=== PATIENT | female | born 1955 | race Caucasian/White ===

== ENCOUNTER 2018-05-16 07:59 | Day surgery (SDC) | payer OTHER, MEDICARE ==
[~2018-05-16] VITALS: Ht 165.1 cm; Wt 74.3 kg
[~2018-05-16 07:59] MED LIST: AMLO5; BENAML20/5; CYCL10 PO; HYDACE5 PO; HYDCHL25; OXYACE5T PO; RXOXYACE PO; TRAZ100; TRAZODONE
== END 2018-05-16 10:57 | disposition home or self-care (01) ==
LOC: ORSCSDS 07:59
PROVIDERS: Internal Medicine Gastroenterology
PROC: 0DBN8ZX Excision of Sigmoid Colon, Via Natural or Artificial Opening Endoscopic, Diagnostic (ICD-10-PCS; principal; 2018-05-16 09:15)
DX: Z12.11 Encounter for screening for malignant neoplasm of colon (principal); D12.5 Benign neoplasm of sigmoid colon; K64.8 Other hemorrhoids; F41.8 Other specified anxiety disorders; K57.30 Diverticulosis of large intestine without perforation or abscess without bleeding; Z86.19 Personal history of other infectious and parasitic diseases; K74.60 Unspecified cirrhosis of liver; I10 Essential (primary) hypertension; Z87.891 Personal history of nicotine dependence; Z79.899 Other long term (current) drug therapy
CPT/HCPCS: 88305; J7120

== ENCOUNTER → 2021-02-26 | Outpatient (CLI) | payer OTHER ==
[2021-03-01 10:11] LABS: CHLAMYDIA BY NAA Negative (Negative); GONOCOCCUS BY NAA Negative (Negative); TRICH VAG BY NAA Negative (Negative)
== END | disposition home or self-care (01) ==
LOC: LAB SHORT 15:19
PROVIDERS: Physician Assistant Medical
DX: N76.0 Acute vaginitis (principal)
CPT/HCPCS: 87491; 87591; 87661

== ENCOUNTER 2021-04-05 05:30 | Day surgery (SDC) | payer BC | END 2021-04-05 10:20 | disposition home or self-care (01) | LOC: ORSCSDS 05:30 | DX: K31.A0 Gastric intestinal metaplasia, unspecified (principal); R63.4 Abnormal weight loss; Z53.9 Procedure and treatment not carried out, unspecified reason | CPT/HCPCS: J2704; J7120 ==

== ENCOUNTER 2021-08-29 08:25 | Inpatient (IN) | payer BC ==
[~2021-08-29] VITALS: Ht 167.6 cm; Wt 63.6 kg
[~2021-08-29 08:25] MED LIST changes: -AMLO5; +AMLO5 PO; +HYDROCODONE 5/325 PO; +LOSA25 PO; -TRAZ100; +TRAZ100 PO
--- NOTE | 2021-08-29 10:25 | NUR ---
History, Chart, Medications and Allergies reviewed before start of procedure. Lungs clear T/O to Auscultation. Patient confirms NPO status and agrees with scheduled surgery. Pre-Op teaching done. Pt verbalizes understanding.
--- NOTE | 2021-08-29 15:11 | NUR ---
ICE BAG PLACED TO LEG PER ORDERS. PT EATING ICE CHIPS AT THIS TIME.
--- NOTE | 2021-08-29 17:31 | NUR ---
SUMMARY PT ARRIVED TO UNIT FROM PACU. SCOOTED OVER FROM GURNEY TO BED WITH SUPPORT TO HER RLE. AQUACEL DRESSING TO RLE CDI. ICE PACK ON SURGICAL SITE FOR COMFORT. MEDICATED PT PER ORDERS FOR PAIN. PT TOLERATING PO INTAKE. VSS. PT SBA TO BSC TO VOID. NOW BACK TO BED. CALL LIGHT IN REACH.
--- NOTE | 2021-08-30 04:09 | NUR ---
SHIFT SUMMARY A/O X4- VITAL SIGNS STABLE. POD0 ORIF R TIBIAL PLATEAU FX, AQUACEL IN PLACE SCANT SHADOWING. PAIN MANAGED W/ PO PAIN MEDICATIONS. STAND PIVOT TO BEDSIDE COMMODE INDEPENDENTLY W/ SBA. VOIDING AND TOLERATING PO INTAKE. WILL CONTINUE TO MONITOR AND REPORT TO ONCOMING RN.
[2021-08-30 05:38] LABS: BASOPHILS ABSOLUTE AUTO 0.02 K/mm3 (0.00-0.23); BASOPHILS PERCENT AUTO 0 % (0-2); EOSINOPHILS PERCENT AUTO 0 % (0-6); Hematocrit 36.9 % (33.0-51.0); Hemoglobin 12.4 g/dL (11.5-16.0); IMMATURE GRAN ABSOLUTE AUTO 0.05 K/mm3 (0.00-0.10); IMMATURE GRAN PERCENT AUTO 0 % (0-1); LYMPHOCYTES ABSOLUTE AUTO 0.91 K/mm3 (0.84-5.20); LYMPHOCYTES PERCENT AUTO 6 % (21-46); MONOCYTES ABSOLUTE AUTO 0.63 K/mm3 (0.16-1.47); MONOCYTES PERCENT AUTO 4 % (4-13); Mean Corpuscular HGB 29.1 pg (26.0-34.0); Mean Corpuscular HGB Conc 33.6 g/dL (31.5-36.5); Mean Corpuscular Volume 87 fL (80-100); Mean Platelet Volume 10.3 fL (9.1-12.4); NEUTROPHILS ABSOLUTE AUTO 13.56 K/mm3 (1.96-9.15); NEUTROPHILS PERCENT AUTO 89 % (41-73); Platelet Count 314 K/mm3 (150-400); RDW Coefficient Variation 12.2 % (11.7-14.2); RDW Standard Deviation 38.5 fL (35.1-46.3); Red Blood Cell Count 4.26 M/mm3 (3.80-5.20); White Blood Cell Count 15.17 K/mm3 (4.00-11.30)
[2021-08-30 06:11] LABS: Bun/Creatinine Ratio 19.3 (12.0-20.0); Calcium, Blood 9.5 mg/dL (8.5-10.1); Creatinine, Blood 0.57 mg/dL (0.40-1.00); Potassium, Blood 3.8 mmol/L (3.5-5.5)
[2021-08-30] MEDS ORDERED: TRAZ100 PO (10:22)
[2021-08-30] MEDS ORDERED: Percocet 5-3251 EACH PO (10:23)
[2021-08-30] MEDS ORDERED: Aspir 8181 MG PO (10:26)
--- NOTE | 2021-08-30 12:28 | NUR ---
DISCHARGE SUMMARY PATIENT ALERT AND ORIENTED THROUGHOUT SHIFT. TOLERATING VEGETARIAN DIET AND LIQUIDS. MAINTAINS NWB STATUS WITH FWW. ABLE TO TRANSFER INDEPENDENTLY FROM BED TO COMMODE AND CHAIR. USES WHEELCHAIR TO MOVE IN HALLS. VOIDING WELL. PAIN CONTROLLED WITH PO PAIN MEDS. CLEARED BY PT. DISCHARGE ORDER IN CHART. DISCHARGE EDUCATION GIVEN ON WOUND CARE, ACTIVITY, NEW RXS, AND FOLLOW UP APPTS. IV DC'D WNL. PT TOLERATED WELL. PATIENT LEFT UNIT VIA WHEELCHAIR AT 1200 WITH DAUGHTER FOR HOME.
== END 2021-08-30 11:53 | disposition home or self-care (01) | DRG 494 ==
LOC: SURS 08:25 → ORSCMMR 10:00 → EDSTATUS 11:30 → ORSCMMR 11:30 → ORD 11:30 → SURS 16:00
PROVIDERS: ADMIT Orthopaedic Surgery
PROC: 0QSG04Z Reposition Right Tibia with Internal Fixation Device, Open Approach (ICD-10-PCS; principal; 2021-08-29 10:00)
DX: S82.141A Displaced bicondylar fracture of right tibia, initial encounter for closed fracture (principal); Z87.891 Personal history of nicotine dependence; K74.60 Unspecified cirrhosis of liver; F32.A Depression, unspecified; I10 Essential (primary) hypertension; K58.9 Irritable bowel syndrome, unspecified; E55.9 Vitamin D deficiency, unspecified; Z90.710 Acquired absence of both cervix and uterus; Z79.899 Other long term (current) drug therapy
CPT/HCPCS: 36415; 71045; 73560-RT; 80048; 85025; 97110; 97161; 97166; 97530; 97535; A9270; J0171; J0690; J1100; J1170; J2250; J2405; J2704; J3010; J7120

== ENCOUNTER 2022-05-12 10:25 | Observation (INO) | payer SELFPAY ==
[~2022-05-12] VITALS: Ht 165.1 cm; Wt 62.6 kg
[~2022-05-12 10:25] MED LIST changes: +Aspir 8181 MG PO; +Percocet 5-3251 EACH PO
[2022-05-12 11:27] LABS: BASOPHILS ABSOLUTE AUTO 0.03 K/mm3 (0.00-0.23); BASOPHILS PERCENT AUTO 0 % (0-2); EOSINOPHILS ABSOLUTE AUTO 0.07 K/mm3 (0.00-0.68); EOSINOPHILS PERCENT AUTO 1 % (0-6); Hematocrit 38.5 % (33.0-51.0); Hemoglobin 13.4 g/dL (11.5-16.0); IMMATURE GRAN ABSOLUTE AUTO 0.02 K/mm3 (0.00-0.10); IMMATURE GRAN PERCENT AUTO 0 % (0-1); LYMPHOCYTES ABSOLUTE AUTO 1.85 K/mm3 (0.84-5.20); LYMPHOCYTES PERCENT AUTO 25 % (21-46); MONOCYTES ABSOLUTE AUTO 0.41 K/mm3 (0.16-1.47); MONOCYTES PERCENT AUTO 6 % (4-13); Mean Corpuscular HGB 29.5 pg (26.0-34.0); Mean Corpuscular HGB Conc 34.8 g/dL (31.5-36.5); Mean Corpuscular Volume 85 fL (80-100); Mean Platelet Volume 10.3 fL (9.1-12.4); NEUTROPHILS ABSOLUTE AUTO 4.98 K/mm3 (1.96-9.15); NEUTROPHILS PERCENT AUTO 68 % (41-73); Platelet Count 253 K/mm3 (150-400); RDW Coefficient Variation 12.4 % (11.7-14.2); RDW Standard Deviation 38.4 fL (35.1-46.3); Red Blood Cell Count 4.54 M/mm3 (3.80-5.20); White Blood Cell Count 7.36 K/mm3 (4.00-11.30)
[2022-05-12 11:56] LABS: Ethanol (Alcohol), Blood, Med <3 mg/dL; Salicylate <1.7 mg/dL (2.8-20.0)
[2022-05-12 11:57] LABS: Alanine Aminotransfer (ALT/SGP 22 U/L (12-78); Albumin, Blood 3.8 g/dL (3.4-5.0); Alk Phos 72 U/L (50-136); Anion Gap 4 mmol/L (6-16); Aspartate Aminotrans (AST/SGOT 25 U/L (12-37); Bilirubin, Total 0.6 mg/dL (0.1-1.0); Blood Urea Nitrogen 16 mg/dL (8-24); Bun/Creatinine Ratio 22.6 (12.0-20.0); CO2, Blood 31 mmol/L (21-32); Calcium, Blood 9.1 mg/dL (8.5-10.1); Chloride, Blood 104 mmol/L (98-108); Creatinine, Blood 0.71 mg/dL (0.40-1.00); Glomerular Filtration Rate 94 (60-); Glucose, Blood 96 mg/dL (70-99); Potassium, Blood 3.6 mmol/L (3.5-5.5); Sodium, Blood 139 mmol/L (136-145); Total Protein, Blood 7.8 g/dL (6.4-8.2)
[2022-05-12 11:58] LABS: Acetaminophen, Random <2.0 ug/mL (10.0-30.0)
[2022-05-12 12:13] LABS: Influenza A, PCR NEGATIVE (NEGATIVE); Influenza B, PCR NEGATIVE (NEGATIVE); Resp Syncytial Virus, PCR NEGATIVE (NEGATIVE); SARS-Cov-2 (COVID-19) PCR, MMC NEGATIVE (NEGATIVE)
[2022-05-12] MEDS ORDERED: Prozac20 MG PO (12:37)
== END 2022-05-12 12:54 | disposition home or self-care (01) ==
LOC: ER 10:25 → EOR 10:26
PROVIDERS: ADMIT Emergency Medicine
DX: F32.A Depression, unspecified (principal); Z20.822 Contact with and (suspected) exposure to COVID-19; Z87.891 Personal history of nicotine dependence; Z79.899 Other long term (current) drug therapy
CPT/HCPCS: 0241U; 36415; 80053; 84443; 85025; A9270; G0378; G0480

== ENCOUNTER 2022-09-21 09:52 | Day surgery (SDC) | payer MEDICARE ==
[~2022-09-21] VITALS: Ht 165.1 cm; Wt 67.5 kg
[~2022-09-21 09:52] MED LIST changes: +Prozac20 MG PO
--- NOTE | 2022-09-21 10:36 | NUR ---
09/21/22 1036 GUILLE MURRAY PT TALKATIVE, COOPERATIVE WITH CARE. VSS. PRE-OP TEACHING COMPLETE.
--- NOTE | 2022-09-21 11:23 | NUR ---
09/21/22 1123 Ana Isbell 20ML OF ROPIVACAINE 0.5% MIXED AND VERIFIED WITH 0.1ML OF EPI (1MG/ML) TO MAKE ROPIVACAINE 0.5% WITH EPI 1:200,000 FOR INJECTION AT OPSITE BY DR RUELAS
[2022-09-21 12:18] VITALS: BP 157/87
--- NOTE | 2022-09-21 12:29 | NUR ---
09/21/22 1229 Haris Berrios IV REMOVED INTACT. SITE WNL.
== END 2022-09-21 12:27 | disposition home or self-care (01) ==
LOC: ORSCSDS 09:52
PROVIDERS: Orthopaedic Surgery
PROC: 0QPG04Z Removal of Internal Fixation Device from Right Tibia, Open Approach (ICD-10-PCS; principal; 2022-09-21 11:15)
DX: T84.84XA Pain due to internal orthopedic prosthetic devices, implants and grafts, initial encounter (principal); I10 Essential (primary) hypertension; Z87.891 Personal history of nicotine dependence; K74.60 Unspecified cirrhosis of liver; B19.20 Unspecified viral hepatitis C without hepatic coma; Z79.899 Other long term (current) drug therapy
CPT/HCPCS: A9270; C1713; J0171; J0690; J2704; J2795; J3010; J7120

== ENCOUNTER 2024-10-28 17:10 | Inpatient (IN) | payer OTHER ==
[~2024-10-28] VITALS: Ht 165.1 cm; Wt 75.0 kg
[2024-10-28] MEDS ORDERED: Morphine Sulfate 4 MG/1 ML Injection IV ONE (17:45)
[2024-10-28] MEDS ORDERED: HYDROmorphone HCl/Pf 1MG SYR IV ONE (18:50)
[2024-10-28 19:47] LABS: BASOPHILS ABSOLUTE AUTO 0.03 K/mm3 (0.00-0.23); BASOPHILS PERCENT AUTO 0 % (0-2); EOSINOPHILS ABSOLUTE AUTO 0.00 K/mm3 (0.00-0.68); EOSINOPHILS PERCENT AUTO 0 % (0-6); Hematocrit 39.8 % (33.0-51.0); Hemoglobin 14.0 g/dL (11.5-16.0); IMMATURE GRAN ABSOLUTE AUTO 0.08 K/mm3 (0.00-0.10); IMMATURE GRAN PERCENT AUTO 1 % (0-1); LYMPHOCYTES ABSOLUTE AUTO 0.77 K/mm3 (0.84-5.20); LYMPHOCYTES PERCENT AUTO 4 % (21-46); MONOCYTES ABSOLUTE AUTO 0.85 K/mm3 (0.16-1.47); MONOCYTES PERCENT AUTO 5 % (4-13); Mean Corpuscular HGB Conc 35.2 g/dL (31.5-36.5); Mean Corpuscular Volume 83 fL (80-100); NEUTROPHILS ABSOLUTE AUTO 15.60 K/mm3 (1.96-9.15); NEUTROPHILS PERCENT AUTO 90 % (41-73); NRBC ABSOLUTE 0.00 K/mm3 (0.00-0.02); NRBC Auto 0.0 /100 WBC (0.0-0.2); Platelet Count 200 K/mm3 (150-400); RDW Coefficient Variation 12.9 % (11.7-14.2); RDW Standard Deviation 38.5 fL (35.1-46.3)
[2024-10-28] MEDS ORDERED: OxyCODONE 5 mg/Acetamin 325 mg TABLET PO PRN (20:05)
[2024-10-28] MEDS ORDERED: Ondansetron HCl 2 MG / ML 2ML Vial IV PRN (20:05)
[2024-10-28] MEDS ORDERED: FentaNYL Citrate 50 MCG/ML 2 ML Injection IV PRN (20:05)
[2024-10-28] MEDS ORDERED: NS 1,000 ML IV SCH (20:05)
[2024-10-28 20:09] LABS: Anion Gap 10.0 mmol/L (3-11); Blood Urea Nitrogen 13.0 mg/dL (8-24); CO2, Blood 26.0 mmol/L (21-32); Calcium, Blood 8.8 mg/dL (8.5-10.1); Chloride, Blood 106.0 mmol/L (98-108); Creatinine, Blood 0.68 mg/dL (0.40-1.00); Glucose, Blood 128.0 mg/dL (70-99); Potassium, Blood 3.0 mmol/L (3.5-5.5); Sodium, Blood 139.0 mmol/L (136-145)
[2024-10-28] MEDS ORDERED: NS 1,000 ML IV ONE (21:16)
[2024-10-28 22:11] VITALS: BP 180/96
[2024-10-28 22:33] VITALS: BP 163/83
--- NOTE | 2024-10-28 23:00 | NUR ---
ARRIVAL TO SURGICAL ROOM 213 FROM ER AT 2152. PT A/OX4, PT HAD EPISODE OF EMESIS UPON ARRIVAL. PT TRANSFERED VIA SLIDER SHEET, PT PAINFUL WITH TRANSFER. SURGICAL INFECTION WIPE DOWN COMPLETED, PT ORIENTED TO ROOM AND CALL LIGHT. PT DENIES IGNITION SOURCES PRESENT. CALL LIGHT IN REACH.
[2024-10-29 04:48] VITALS: BP 157/84
[2024-10-29 05:13] LABS: Hematocrit 35.9 % (33.0-51.0); Hemoglobin 12.4 g/dL (11.5-16.0); Mean Corpuscular HGB Conc 34.5 g/dL (31.5-36.5); Mean Corpuscular Volume 84 fL (80-100); NRBC ABSOLUTE 0.00 K/mm3 (0.00-0.02); NRBC Auto 0.0 /100 WBC (0.0-0.2); Platelet Count 217 K/mm3 (150-400); RDW Coefficient Variation 13.1 % (11.7-14.2); RDW Standard Deviation 39.8 fL (35.1-46.3)
[2024-10-29 05:40] LABS: Magnesium, Blood 2.1 mg/dL (1.6-2.4)
[2024-10-29 05:41] LABS: Anion Gap 8.0 mmol/L (3-11); Blood Urea Nitrogen 14.0 mg/dL (8-24); CO2, Blood 28.0 mmol/L (21-32); Calcium, Blood 8.3 mg/dL (8.5-10.1); Chloride, Blood 106.0 mmol/L (98-108); Creatinine, Blood 0.73 mg/dL (0.40-1.00); Glucose, Blood 120.0 mg/dL (70-99); Potassium, Blood 3.4 mmol/L (3.5-5.5); Sodium, Blood 139.0 mmol/L (136-145)
--- NOTE | 2024-10-29 05:48 | NUR ---
SHIFT SUMMARY NOC. PT ADMIT FOR RIGHT FEMUR FX. PT A/OX4, NPO SINCE 0000 ASIDE FROM SIP OF WATER FOR PAIN MEDICATION TWICE. PT REPORTS IMPROVEMENT IN PAIN AFTER MEDICATION. PT HAS PURWICK IN PLACE, HAD X1 INCONT VOID UPON ARRIVAL. PT MAKES NEEDS KNOWN, CALL LIGHT IN REACH.
[2024-10-29 06:52] VITALS: BP 145/80
[2024-10-29] MEDS ORDERED: Polyethylene Glycol 3350 17 gm PO SCH (14:00)
[2024-10-29] MEDS ORDERED: NS 1,000 ML IV SCH (14:00)
[2024-10-29 15:12] LABS: Source, Urine Clean Catch
[2024-10-29 15:44] VITALS: BP 164/75
[2024-10-29 16:03] LABS: Bilirubin, Urine Neg (Neg); Color, Urine Yellow (P-Yellow); Glucose Qualitative, Urine Neg (Neg); Ketones, Urine Neg (Neg); Leukocyte Esterase, Urine Neg (Neg); Protein, Urine 2+ (Neg); Specific Gravity, Urine 1.010 (1.003-1.022); Urobilinogen, Urine NORM (Normal)
[2024-10-29 16:21] LABS: White Blood Cells, Urine 0-2 /hpf (0-5)
--- NOTE | 2024-10-29 17:44 | NUR ---
SUMMARY: ADMIT FOR R HIP FX. PT POSITIONED FOR COMFORT, MEDICATED FOR PAIN PRN, SEE EMAR. FLUIDS INFUSING. PUREWICK IN PLACE AND PT VOIDING. VSS, A /O, NO CONCERNS. PLAN IS NPO AT 0000
[2024-10-29 19:23] VITALS: BP 175/97
[2024-10-29 19:24] VITALS: BP 169/83
[2024-10-30] VITALS (17 sets, daily range): BP systolic 119–160; BP diastolic 61–94
[2024-10-30 04:52] LABS: Hematocrit 34.6 % (33.0-51.0); Hemoglobin 11.8 g/dL (11.5-16.0); Mean Corpuscular HGB Conc 34.1 g/dL (31.5-36.5); Mean Corpuscular Volume 86 fL (80-100); NRBC ABSOLUTE 0.00 K/mm3 (0.00-0.02); NRBC Auto 0.0 /100 WBC (0.0-0.2); Platelet Count 170 K/mm3 (150-400); RDW Coefficient Variation 13.2 % (11.7-14.2); RDW Standard Deviation 40.7 fL (35.1-46.3)
[2024-10-30 05:02] LABS: Anion Gap 8.0 mmol/L (3-11); Blood Urea Nitrogen 9.0 mg/dL (8-24); CO2, Blood 26.0 mmol/L (21-32); Calcium, Blood 8.1 mg/dL (8.5-10.1); Chloride, Blood 112.0 mmol/L (98-108); Creatinine, Blood 0.73 mg/dL (0.40-1.00); Glucose, Blood 98.0 mg/dL (70-99); Potassium, Blood 3.5 mmol/L (3.5-5.5); Sodium, Blood 142.0 mmol/L (136-145)
--- NOTE | 2024-10-30 05:09 | NUR ---
NOC SUMMARY- PT PAIN MANAGED WELL. PT VOIDING VIA PUREWICK. PT HAS BEEN NPO SINCE MD. CHG WIPE DOWN COMPLETED. NO OTHER ISSUES. CALL LIGHT IN REACH.
--- NOTE | 2024-10-30 06:57 | NUR ---
PT TO OR AT 1550
[2024-10-30] MEDS ORDERED: Ropivacaine 0.5% HCl/Pf 123.125 MG,EPINEPHrine HCL 0.25 MG,Ketorolac Tromethamine 15 MG... INFIL SCH (07:00)
[2024-10-30] MEDS ORDERED: CeFAZolin Sodium 2,000 MG in NS 100 ML IV SCH ×2 (07:00→16:30)
[2024-10-30] MEDS ORDERED: Tranexamic Acid 100 ML IV SCH (07:00)
--- NOTE | 2024-10-30 07:15 | NUR ---
PT ARRIVED TO UNIT VIA HOSP BED. WATCH REMOVED IN UNIT AND PLACED IN BAG WITH PT'S NAME ON IT, GLASSES WILL ALSO BE PLACED IN BAG AND TAKEN TO PACU. BEADED BRACELET LEFT IN PLACE, JEWELRY REFUSAL SIGNED. COBAN PLACED OVER BRACELET. History, Chart, Medications and Allergies reviewed before start of procedure. Patient confirms NPO status and agrees with scheduled surgery.
--- NOTE | 2024-10-30 07:19 | NUR ---
JENN HOSE NOT PLACED ON PT IN PRE OP DUE TO PT REPORTING PAIN AND DIDNT TOLERATED THE JENN HOSE BEING PLACED.
[2024-10-30] MEDS ORDERED: Dexmedetomidine HCL 200 MCG / 2 ML ONE (07:39)
[2024-10-30] MEDS ORDERED: FentaNYL Citrate 50 MCG/ML 2 ML Injection ONE ×2 (07:52→10:52)
[2024-10-30] MEDS ORDERED: Rocuronium Bromide 10 MG/ML 5ML Injection IV ONE (07:56)
[2024-10-30] MEDS ORDERED: Ketorolac Tromethamine 30mg Vial ONE (07:56)
[2024-10-30] MEDS ORDERED: SuccINYLCHOLINE Chloride 100 MG/5 ML 5MLSYR ONE (07:56)
[2024-10-30] MEDS ORDERED: Dexamethasone Sod Phos 10 MG/ML 1ML VIAL ONE (07:56)
[2024-10-30] MEDS ORDERED: Ondansetron HCl 2 MG / ML 2ML Vial ONE ×2 (07:56→11:25)
--- NOTE | 2024-10-30 08:20 | NUR ---
PT BACK TO OR AT 0816. PT READY IN DAY SURGERY AT 0745 INCLUDING BEING SEEN BY BOTH SURGEON AND ANESTHESIA PROVIDER. TELE GROUT SEWER LINE REPAIRER BETTE INFORMED OF PT BEING INCONTINENT WITH URINE BEFORE GOING BACK TO OR. PUREWICK WAS IN PLACE WITH SUCTION HOOKED UP. ATTENDS IN PLACE ALSO. PT REQUESTED NOT TO HAVE ATTENDS OR BED CHANGED DUE TO HER "EXTREME" HIP PAIN WHEN SHE IS MOVED AROUND. BETTE RN NOTIFIED.
[2024-10-30] MEDS ORDERED: FentaNYL Citrate 50 MCG/ML 2 ML Injection IV PRN ×2 (08:55→09:00)
[2024-10-30] MEDS ORDERED: HYDROmorphone HCl/Pf 1MG SYR IV PRN ×3 (08:55→10:45)
[2024-10-30] MEDS ORDERED: Ondansetron HCl 2 MG / ML 2ML Vial IV PRN ×2 (09:00→10:55)
[2024-10-30] MEDS ORDERED: Sugammadex Sodium 200 MG/2ML SDV (100 MG/ML) ONE (10:09)
[2024-10-30] MEDS ORDERED: Prochlorperazine Edisylate 10 mg Vial IV PRN (10:45)
[2024-10-30] MEDS ORDERED: Magnesium Hydroxide Conc 10 ML UDC PO PRN (11:00)
[2024-10-30] MEDS ORDERED: Metoclopramide HCl 5MG / ML 2ML Vial IV PRN (11:00)
[2024-10-30] MEDS ORDERED: Ketorolac Tromethamine 15mg Vial IV SCH (12:00)
--- NOTE | 2024-10-30 12:04 | NUR ---
POST OP: REPORT RECEIVED FROM LEARNING COACH. PT TO UNIT AT ABOUT 1130. A/O, VSS. SURGICAL SITE WNL. PT INSTRUCTED TO USE CALL LIGHT.
[2024-10-30] MEDS ORDERED: LOSARTAN-HCTZ1 EAC6 PO (15:56)
[2024-10-30] MEDS ORDERED: ASPI81CH PO (16:46)
[2024-10-30] MEDS ORDERED: SULTRIDS PO (16:47)
[2024-10-30] MEDS ORDERED: Percocet 5-3251 EACH PO (16:48)
[2024-10-30] MEDS ORDERED: MIRALAX17 GM PO (18:09)
[2024-10-30] MEDS ORDERED: ACET500 PO (18:09)
--- NOTE | 2024-10-30 18:37 | NUR ---
DISCHARGE: PT AMBULATING WELL, PT CLEARED FOR HH. PAIN MANAGED, VOIDING AND SURGICAL SITE SNL. DC PACKET PRINTED AND PT EDUCATED, IV DC'D WNL, TIP INTACT. PT DAUGHTER FILLED OXYCODONE, ASPRIN, AND ANTIBIOTIC SCRIPTS FROM DR. TAPIA. HH THERAPY SET UP BY DC RN LIAISON. PT LEFT UNIT AT ABOUT 1840 VIA WHEELCHAIR WITH CAROLYN SCHILLING.
[2024-10-31] MEDS ORDERED: Trimethoprim/Sulfamethoxazole DS Tab PO SCH (08:00)
== END 2024-10-30 18:30 | disposition home health service (06) | DRG 522 ==
LOC: ER 17:10 → SURS 20:03
PROVIDERS: Internal Medicine; Nurse Practitioner Acute Care; Orthopaedic Surgery; Student in an Organized Health Care Education/Training Program; ADMIT Internal Medicine
PROC: 3E03329 Introduction of Other Anti-infective into Peripheral Vein, Percutaneous Approach (ICD-10-PCS; 2024-10-30)
PROC: 0SR9049 Replacement of Right Hip Joint with Ceramic on Polyethylene Synthetic Substitute, Cemented, Open Approach (ICD-10-PCS; principal; 2024-10-30 08:00)
DX: S72.091A Other fracture of head and neck of right femur, initial encounter for closed fracture (principal); W01.0XXA Fall on same level from slipping, tripping and stumbling without subsequent striking against object, initial encounter; Y92.009 Unspecified place in unspecified non-institutional (private) residence as the place of occurrence of the external cause; E87.6 Hypokalemia; D72.829 Elevated white blood cell count, unspecified; G47.00 Insomnia, unspecified; M81.0 Age-related osteoporosis without current pathological fracture; Z86.19 Personal history of other infectious and parasitic diseases; Z87.891 Personal history of nicotine dependence
CPT/HCPCS: 36415; 72170; 73502; 73552; 80048; 81001; 83735; 85025; 85027; 86850; 86900; 86901; 96374; 97165; 97530; 97535; 99285-25; A6590; A9270; J0166; J0330; J0690; J0735; J1100; J1171; J1885; J2270; J2405; J2704; J2795; J3010; J3373; J7030; J7050; J7120